=== PATIENT | female | born 1960 | race Caucasian/White ===

== ENCOUNTER 2020-05-07 10:51 | Day surgery (SDC) | payer OTHER ==
[~2020-05-07] VITALS: Ht 166.4 cm; Wt 68.2 kg
[2020-05-07] MEDS ORDERED: SODIUM CHLORIDE 0.9% 1,000 ML IV SCH (11:25)
[2020-05-07] MEDS ORDERED: CHOL10003 PO (11:40)
[2020-05-07] MEDS ORDERED: FENO145T19 PO (11:40)
[2020-05-07] MEDS ORDERED: VENL150T PO (11:40)
[2020-05-07] MEDS ORDERED: LOSA50TA14 PO (11:40)
[2020-05-07] MEDS ORDERED: LEVO88TA4 PO (11:40)
[2020-05-07] MEDS ORDERED: ESTR0.5T PO (11:40)
[2020-05-07] MEDS ORDERED: ESTRADIOL CREAM TP (11:40)
[2020-05-07] MEDS ORDERED: METO-93 PO (11:41)
[2020-05-07] MEDS ORDERED: DIGO250T3 PO (11:41)
[2020-05-07] MEDS ORDERED: MULT-826 PO (11:44)
[2020-05-07 11:45] VITALS: BP 131/87
[2020-05-07 11:55] LABS: BASOPHILS # (AUTO) 0.05 x10^3/uL (0-0.1); BASOPHILS % (AUTO) 1 % (0-1); EOSINOPHILS # (AUTO) 0.15 x10^3/uL (0-0.4); EOSINOPHILS % (AUTO) 3 % (1-7); LYMPHOCYTES # (AUTO) 1.08 x10^3/uL (1-3.4); LYMPHOCYTES % (AUTO) 21 % (22-44); MD NO; MEAN CORPUSCULAR HEMOGLOBIN 29.9 pg (27.0-34.8); MEAN CORPUSCULAR HGB CONC 33.4 g/dL (32.4-35.8); MEAN CORPUSCULAR VOLUME 89.6 fL (80-100); MEAN PLATELET VOLUME 7.5 fL (7.4-10.4); MONOCYTES # (AUTO) 0.38 x10^3/uL (0.2-0.8); MONOCYTES % (AUTO) 7 % (2-9); NEUTROPHILS # (AUTO) 3.59 x10^3/uL (1.8-6.8); NEUTROPHILS % (AUTO) 68 % (42-75); PLATELET COUNT 397 x10^3/uL (130-400); RED BLOOD COUNT 4.42 x10^6/uL (3.82-5.3); RED CELL DISTRIBUTION WIDTH 13.5 % (9.6-15.2)
[2020-05-07 12:06] LABS: ANION GAP 5 mmol/L (5-15); CALCIUM 9.1 mg/dL (8.5-10.1); CHLORIDE 114 mmol/L (98-107); CREATININE 0.88 mg/dL (0.55-1.02)
[2020-05-07] MEDS ORDERED: FENTANYL PF 100 MCG/2ML ONE (12:20)
[2020-05-07] MEDS ORDERED: LIDOCAINE 2%, 20ML ONE (12:20)
[2020-05-07] MEDS ORDERED: MIDAZOLAM 1 MG/ML, 5ML ONE (12:20)
[2020-05-07] MEDS ORDERED: ADENOSINE 6 MG/2 ML ONE (12:20)
[2020-05-07] MEDS ORDERED: ISOPROTERENOL 0.2MG/ML, 5ML ONE (12:20)
[2020-05-07] MEDS ORDERED: ATROPINE SYRINGE 0.1 MG/ML, 10ML ONE (13:24)
[2020-05-07] MEDS ORDERED: LOSARTAN 50MG TABLET PO SCH (21:00)
[2020-05-08] MEDS ORDERED: LEVOTHYROXINE 88 MCG TABLET PO SCH (06:00)
[2020-05-08] MEDS ORDERED: VENLAFAXINE 75 MG CAP ER PO SCH (09:00)
[2020-05-08] MEDS ORDERED: MULTIVITAMIN 1 TABLET PO SCH (09:00)
[2020-05-08] MEDS ORDERED: METOPROLOL SUCCINATE 50 MG TAB.ER.24H PO SCH (09:00)
[2020-05-08] MEDS ORDERED: CHOLECALCIFEROL 5,000u TAB PO SCH (09:00)
[2020-05-08] MEDS ORDERED: ESTRADIOL TP SCH (09:00)
[2020-05-08] MEDS ORDERED: FENOFIBRATE 145 MG TABLET PO SCH (09:00)
[2020-05-08] MEDS ORDERED: ESTRADIOL 0.5 MG TABLET PO SCH (09:00)
== END 2020-05-07 17:44 | disposition home or self-care (01) ==
LOC: CACL 10:51 → 5SO 15:34 → CACL 17:44
PROVIDERS: ATTEND Internal Medicine Cardiovascular Disease
DX: I47.1 Supraventricular tachycardia (principal); I10 Essential (primary) hypertension; Z79.899 Other long term (current) drug therapy; Z88.5 Allergy status to narcotic agent
CPT/HCPCS: 36415; 71046; 80048; 85025; 93613; 93621; 93623; 93653; 99156; 99157; C1730; C1894; C2630; J0461; J2250; J3010; G0378; J0153